=== PATIENT | female | born 1995 | race African-American/Black ===

== ENCOUNTER 2020-04-27 19:48 | Emergency (ER) | payer SELFPAY ==
[2020-04-27] MEDS ORDERED: ACETAMINOPHEN 325 MG TABLET PO ONE (20:34)
--- NOTE | 2020-04-27 20:35 | ER Document Report ---
ED Medical Screen (RME) - General Chief Complaint: Abdominal Pain Stated Complaint: ABDOMINAL AND BACK PAIN Time Seen by Provider: 04/27/20 20:32 Mode of Arrival: Ambulatory Information source: Patient Notes: HPI; 4-year-old female presents to the emergency room complaining of lower pelvic pain that radiates to her back for the past 10 days. Denies nausea, vomiting, no urinary symptoms. Has been taking Aleve with relief until the past 2 days it is no longer helping with her pain. Abnormal menstrual cycle last week she states she only bled for 2 days and then stopped and then spotted for 2 days. Sexually active not using anything for control. Has not done a home test. PE: Alert and oriented x3. Lungs: Clear to auscultation without rales, rhonchi, wheezes. Heart: Regular rate and rhythm without murmurs, rubs, gallops. I have greeted and performed a rapid initial assessment of this patient. A comprehensive ED assessment and evaluation of the patient, analysis of test results and completion of the medical decision making process will be conducted by additional ED providers. I have specifically instructed the patient or family members with the patient to immediately return to any nursing staff should anything change in the patient's condition or with their chief complaint. TRAVEL OUTSIDE OF THE [place] IN LAST 30 DAYS: No Physical Exam - Vital signs Vitals: Temp Pulse Resp BP Pulse Ox 98.1 F 93 16 134/106 H 100 04/27/20 20:06 04/27/20 20:06 04/27/20 20:06 04/27/20 20:06 04/27/20 20:06 Course - Vital Signs Vital signs: Temp Pulse Resp BP Pulse Ox 98.1 F 93 16 134/106 H 100 04/27/20 20:06 04/27/20 20:06 04/27/20 20:06 04/27/20 20:06 04/27/20 20:06
[2020-04-27 21:32] LABS: ABSOLUTE BASOPHILS # (AUTO) 0.1 10^3/uL (0.0-0.2); ABSOLUTE EOSINOPHILS # (AUTO) 0.1 10^3/uL (0.0-0.6); ABSOLUTE LYMPHOCYTES (AUTO) 2.6 10^3/uL (0.5-4.7); ABSOLUTE MONOCYTES (AUTO) 0.7 10^3/uL (0.1-1.4); ABSOLUTE NEUT (AUTO) 6.1 10^3/uL (1.7-8.2); BASOPHILS % (AUTO) 0.8 % (0-2); EOSINOPHILS % (AUTO) 1.4 % (0-6); HEMOGLOBIN 15.1 g/dL (12.0-15.5); LYMPHOCYTES % (AUTO) 26.9 % (13-45); MEAN CORPUSCULAR VOLUME 89 fl (80-97); MONOCYTES % (AUTO) 6.9 % (3-13); PLATELET COUNT 253 10^3/uL (150-450); RED BLOOD COUNT 4.87 10^6/uL (3.72-5.28); RED CELL DISTRIBUTION WIDTH 13.1 % (11.5-14.0); TOTAL CELLS COUNTED % (AUTO) 100 %; WHITE BLOOD COUNT 9.6 10^3/uL (4.0-10.5)
[2020-04-27 21:46] LABS: APPEARANCE,URINE CLEAR; BILIRUBIN,URINE NEGATIVE (NEGATIVE); COLOR,URINE YELLOW; GLUCOSE, URINE NEGATIVE (NEGATIVE); KETONES,URINE NEGATIVE (NEGATIVE); LEUKOCYTE ESTERASE,URINE NEGATIVE (NEGATIVE); NITRITE,URINE NEGATIVE (NEGATIVE); PROTEIN,URINE NEGATIVE (NEGATIVE); URINE SPECIFIC GRAVITY 1.008; UROBILINOGEN,URINE NEGATIVE mg/dL (<2.0)
[2020-04-27 21:57] LABS: ALBUMIN 4.3 g/dL (3.5-5.0); ALKALINE PHOSPHATASE 91 U/L (38-126); ANION GAP 10 (5-19); ASPARTATE AMINO TRANSFERASE 23 U/L (14-36); BILIRUBIN,DIRECT 0.3 mg/dL (0.0-0.4); BILIRUBIN,TOTAL 0.7 mg/dL (0.2-1.3); BLOOD UREA NITROGEN 9 mg/dL (7-20); CALCIUM 9.3 mg/dL (8.4-10.2); CARBON DIOXIDE 26 mmol/L (22-30); CHLORIDE 105 mmol/L (98-107); GLUCOSE 88 mg/dL (75-110); POTASSIUM 4.2 mmol/L (3.6-5.0)
--- NOTE | 2020-04-27 22:14 | ER Document Report ---
ED GI/ - General Chief Complaint: Abdominal Pain Stated Complaint: ABDOMINAL AND BACK PAIN Time Seen by Provider: 04/27/20 20:32 Mode of Arrival: Ambulatory Notes: HPI; 4-year-old female presents to the emergency room complaining of lower pelvic pain that radiates to her back for the past 10 days. Denies nausea, vomiting, no urinary symptoms. Has been taking Aleve with relief until the past 2 days it is no longer helping with her pain. Abnormal menstrual cycle last week she states she only bled for 2 days and then stopped and then spotted for 2 days. Sexually active not using anything for control. Has not done a home test. TRAVEL OUTSIDE OF THE [place] IN LAST 30 DAYS: No Past Medical History - General Information source: Patient Physical Exam - Vital signs Vitals: Temp Pulse Resp BP Pulse Ox 98.1 F 93 16 134/106 H 100 04/27/20 20:06 04/27/20 20:06 04/27/20 20:06 04/27/20 20:06 04/27/20 20:06 Course - Vital Signs Vital signs: Temp Pulse Resp BP Pulse Ox 98.1 F 93 16 134/106 H 100 04/27/20 20:06 04/27/20 20:06 04/27/20 20:06 04/27/20 20:06 04/27/20 20:06 - Laboratory Result Diagrams: 04/27/20 21:10 04/27/20 21:10
--- NOTE | 2020-04-27 22:44 | ER Document Report ---
ED General - General Chief Complaint: Abdominal Pain Stated Complaint: ABDOMINAL AND BACK PAIN Time Seen by Provider: 04/27/20 20:32 Primary Care Provider: [facility] [Provider Group] - Follow up as needed Mode of Arrival: Ambulatory TRAVEL OUTSIDE OF THE [place] IN LAST 30 DAYS: No - HPI Notes: Patient is a 24-year-old female who presents with lower abdominal pain for the past week. Patient states at onset she was able to take Tylenol and ibuprofen with improvement of her symptoms, but her pain worsened yesterday. She describes the pain as a constant, dull pain that radiates to her bilateral flanks. She reports a history of ovarian cyst and had similar symptoms a year ago when one ruptured. She states sitting exacerbates her symptoms. Her last menstrual period was 1 week ago, but states it started 2 days early and was very heavy on the first day. She denies nausea, vomiting, fever, chills, shortness of breath, chest pain, headache, dysuria, diarrhea, and constipation. She has a history of hypertension which she is not currently taking medications for as well as a history of breast reduction. She drinks alcohol occasionally but denies smoking and recreational drug use. G3, P2, A1 (elective). Patient is sexually active and reports one partner. She denies any vaginal discharge. - Related Data Allergies/Adverse Reactions: No Known Allergies Allergy (Unverified 04/27/20 23:43) Past Medical History - General Information source: Patient - Social History Smoking Status: Never Smoker Frequency of alcohol use: Occasional Drug Abuse: None Family History: Reviewed & Not Pertinent Review of Systems - Review of Systems Constitutional: No symptoms reported EENT: No symptoms reported Cardiovascular: No symptoms reported Respiratory: No symptoms reported Gastrointestinal: See HPI Genitourinary: No symptoms reported Female Genitourinary: No symptoms reported Musculoskeletal: See HPI Skin: No symptoms reported Hematologic/Lymphatic: No symptoms reported Neurological/Psychological: No symptoms reported Physical Exam - Vital signs Vitals: Temp Pulse Resp BP Pulse Ox 98.1 F 93 16 134/106 H 100 04/27/20 20:06 04/27/20 20:06 04/27/20 20:06 04/27/20 20:06 04/27/20 20:06 - Notes Notes: PHYSICAL EXAMINATION: VITALS: Vitals reviewed and within normal limits. GENERAL: Well-appearing, well-nourished and in no acute distress. HEAD: Atraumatic, normocephalic. EYES: Pupils equal round and reactive to light, extraocular movements intact, sc brook anicteric, conjunctiva are normal. ENT: nares patent, oropharynx clear without exudates. Moist mucous membranes. NECK: Normal range of motion, supple without lymphadenopathy. LUNGS: Breath sounds clear to auscultation bilaterally and equal. No wheezes rales or rhonchi. HEART: Regular rate and rhythm without murmurs. ABDOMEN: Soft, nontender, normoactive bowel sounds. No guarding, no rebound. No masses appreciated. EXTREMITIES: Normal range of motion, no pitting or edema. No cyanosis. NEUROLOGICAL: No focal neurological deficits. Moves all extremities spontaneously and on command. PSYCH: Normal mood, normal affect. SKIN: Warm, Dry, normal turgor, no rashes or lesions noted. Course - Re-evaluation Re-evalutation: Patient is a 24-year-old female who presents with lower abdominal pain for the past week. Vital signs are within normal limits. Physical exam unremarkable. WBC normal at 9.6. Electrolytes normal and other labs otherwise unremarkable. UA negative. Transvaginal ultrasound shows normal-appearing ovaries with good venous and arterial blood flow. Based on workup, I am not concerned for ovarian torsion or infection. I discussed the results with the patient. Patient will be discharged home. I recommended ibuprofen and heating pad for symptomatic relief. Return precautions given and patient instructed to follow up with her PCP. - Vital Signs Vital signs: Temp Pulse Resp BP Pulse Ox 98.1 F 69 16 128/83 H 98 04/27/20 20:06 04/28/20 00:45 04/28/20 00:45 04/28/20 00:45 04/28/20 00:45 - Laboratory Result Diagrams: 04/27/20 21:10 04/27/20 21:10 Discharge - Discharge Clinical Impression: Abdominal pain Qualifiers: Abdominal location: lower abdomen, unspecified Qualified Code(s): R10.30 - Lower abdominal pain, unspecified Condition: Stable Disposition: HOME, SELF-CARE Additional Instructions: Take Ibuprofen/Tylenol and use as heating as needed for pain. Return if symptoms worsen or if you begin to have persistent vomiting, or fever. Abdominal Pain There are many causes of abdominal pain. Pain can mean a serious problem requiring surgery (such as appendicitis). It can also be an innocent problem that goes away on its own (such as a viral infection). Often, time must pass to determine the cause of pain. The physician does not feel that hospitalization is necessary, at present. Things may change within the next 24 hours. Call the doctor or come back for re- examination if any problems occur, such as: (1) Pain that becomes more severe, steady, or becomes concentrated in one specific area. Also, pain that is more severe with movement or coughing. (2) Vomiting that persists or becomes more frequent. (3) Blood in the vomitus, urine, or bowel movements. Blood in the stool may have a tarry or black appearance. (4) Shaking chills or fever greater than 100 degrees F. (5) The abdomen becomes more distended or swollen. (6) Bowel movements cease. (7) Failure to improve as expected. Referrals: [facility] [Provider Group] - Follow up as needed
[2020-04-27] MEDS ORDERED: OXYCODONE-ACETAMINOPHEN 5-325 MG TABLET PO ONE (22:46)
[2020-04-27] MEDS ORDERED: ONDANSETRON 4 MG TAB.RAPDIS PO ONE (22:46)
--- NOTE | 2020-04-28 00:18 | RADIOLOGY REPORT (SQ) ---
EXAM DESCRIPTION: US PELVIS TRANSVAGINAL COMPLETED DATE/TME: 04/27/2020 22:28 CLINICAL HISTORY: 24 years, Female, pelvic pain COMPARISON: None. TECHNIQUE: Emergent pelvic ultrasound LIMITATIONS: None. FINDINGS: The uterus measures 9.0 x 4.2 x 5.9 cm. The endometrium measures 4.7 mm in thickness. The myometrium is homogenous. The right ovary measures 4 x 2 x 2 cm, the left 3 x 2 x 2 cm. Arterial and venous flow to each ovary. Bilateral ovarian follicles. No solid adnexal mass. No free fluid IMPRESSION: Unremarkable exam copyright 2010 [employer]- All Rights Reserved
[2020-04-28 00:42] VITALS: BP 128/83
== END 2020-04-28 00:45 | disposition home or self-care (01) ==
LOC: EDBD → ER 19:48
DX: R10.30 Lower abdominal pain, unspecified (principal); R10.2 Pelvic and perineal pain; M54.9 Dorsalgia, unspecified
CPT/HCPCS: 99284; 36415; 84703; 85025; 80053; 81001; 76830; 93976; S0119

== ENCOUNTER 2020-05-24 08:18 | Emergency (ER) | payer SELFPAY ==
[2020-05-24 09:39] LABS: APPEARANCE,URINE SLIGHTLY-CLOUDY; BILIRUBIN,URINE NEGATIVE (NEGATIVE); COLOR,URINE YELLOW; GLUCOSE, URINE NEGATIVE (NEGATIVE); KETONES,URINE NEGATIVE (NEGATIVE); LEUKOCYTE ESTERASE,URINE SMALL (NEGATIVE); NITRITE,URINE NEGATIVE (NEGATIVE); PROTEIN,URINE NEGATIVE (NEGATIVE); URINE SPECIFIC GRAVITY 1.024; UROBILINOGEN,URINE NEGATIVE mg/dL (<2.0)
[2020-05-24 10:43] LABS: ABSOLUTE EOSINOPHILS # (AUTO) 0.1 10^3/uL (0.0-0.6); ABSOLUTE LYMPHOCYTES (AUTO) 1.7 10^3/uL (0.5-4.7); ABSOLUTE MONOCYTES (AUTO) 0.5 10^3/uL (0.1-1.4); BASOPHILS % (AUTO) 0.6 % (0-2); EOSINOPHILS % (AUTO) 1.7 % (0-6); HEMATOCRIT 39.7 % (36.0-47.0); LYMPHOCYTES % (AUTO) 27.6 % (13-45); MEAN CORPUSCULAR HEMOGLOBIN 30.8 pg (27.0-33.4); MEAN CORPUSCULAR HGB CONC 35.3 g/dL (32.0-36.0); MEAN CORPUSCULAR VOLUME 87 fl (80-97); MONOCYTES % (AUTO) 7.4 % (3-13); PLATELET COUNT 197 10^3/uL (150-450); RED BLOOD COUNT 4.55 10^6/uL (3.72-5.28); RED CELL DISTRIBUTION WIDTH 13.1 % (11.5-14.0); SEGMENTED NEUTROPHILS % (AUTO) 62.7 % (42-78); TOTAL CELLS COUNTED % (AUTO) 100 %; WHITE BLOOD COUNT 6.3 10^3/uL (4.0-10.5)
[2020-05-24 11:12] LABS: ALBUMIN 3.7 g/dL (3.5-5.0); ALKALINE PHOSPHATASE 75 U/L (38-126); ANION GAP 8 (5-19); ASPARTATE AMINO TRANSFERASE 19 U/L (14-36); BILIRUBIN,DIRECT 0.2 mg/dL (0.0-0.4); BILIRUBIN,TOTAL 0.6 mg/dL (0.2-1.3); BLOOD UREA NITROGEN 10 mg/dL (7-20); CARBON DIOXIDE 26 mmol/L (22-30); CHLORIDE 107 mmol/L (98-107); GLUCOSE 89 mg/dL (75-110); POTASSIUM 3.9 mmol/L (3.6-5.0); TOTAL PROTEIN 7.1 g/dL (6.3-8.2)
[2020-05-24] MEDS ORDERED: KETOROLAC TROMETHAMINE INJ/PF 30 MG/1 ML SDV IV ONE (11:20)
[2020-05-24] MEDS ORDERED: CEFTRIAXONE 1 GM/D5W RTU 1 GM/50 ML RTUPB IV ONE (11:20)
--- NOTE | 2020-05-24 11:27 | ER Document Report ---
ED General - General Chief Complaint: Abdominal Pain Stated Complaint: ABDOMINAL/PELVIS PAIN,HEADACHE Time Seen by Provider: 05/24/20 10:59 Primary Care [facility] [Provider Group] - Follow up in 1 week TRAVEL OUTSIDE OF THE [place] IN LAST 30 DAYS: No - HPI Notes: 24-year-old female G2, P2 here to the emergency department with complaints of lower abdominal pain and cramping began yesterday with associated urinary frequency. She states that she had her last menstrual period on April 21 and she has only been having some mild vaginal spotting in the past couple of days. She states that she had a negative test at home but she still concerned that she could potentially be . She admits that every time she uses the restroom she feels this pulling sensation in her bladder. She denies any fevers or chills. She denies any flank pain. She does admit to some low back pain. She denies any concern for STD but she would still like to be tested. - Related Data Allergies/Adverse Reactions: No Known Allergies Allergy (Unverified 04/27/20 23:43) Past Medical History - General Information source: Patient - Social History Smoking Status: Never Smoker Frequency of alcohol use: Social Drug Abuse: None Family History: Reviewed & Not Pertinent Patient has homicidal ideation: No Review of Systems - Review of Systems Constitutional: denies: Chills, Fever EENT: No symptoms reported Cardiovascular: denies: Chest pain, Palpitations, Dizziness, Lightheaded Respiratory: denies: Cough, Short of breath Gastrointestinal: Abdominal pain. denies: Diarrhea, Nausea, Vomiting Genitourinary: See HPI, Frequency Female Genitourinary: Vaginal bleeding Musculoskeletal: See HPI, Back pain Skin: No symptoms reported Hematologic/Lymphatic: No symptoms reported Neurological/Psychological: No symptoms reported -: Yes All other systems reviewed and negative Physical Exam - Vital signs Vitals: Temp Pulse Resp BP Pulse Ox 98.7 F 87 14 137/80 H 99 05/24/20 08:23 05/24/20 08:23 05/24/20 08:23 05/24/20 08:23 05/24/20 08:23 Interpretation: Normal - General General appearance: Appears well, Alert In distress: None - HEENT Head: Normocephalic, Atraumatic Eyes: Normal Pupils: PERRL - Respiratory Respiratory status: No respiratory distress Chest status: Nontender Breath sounds: Normal. No: Wheezing Chest palpation: Normal - Cardiovascular Rhythm: Regular Heart sounds: Normal auscultation Murmur: No - Abdominal Inspection: Normal Distension: No distension Bowel sounds: Normal Tenderness: Nontender. No: Tender, McBurney's point, Delong's sign, Guarding, R ebound Organomegaly: No organomegaly - Genitourinary Notes: Patient declines pelvic exam. 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 Patient declines pelvic exam. She would like to self swab. She would like to be discharged after she gets Rocephin and Toradol and called with results of GC/chlamydia and wet mount. Will discharge home and have her follow with PCP. - Vital Signs Vital signs: Temp Pulse Resp BP Pulse Ox 98.8 F 77 14 126/81 H 97 05/24/20 12:17 05/24/20 12:17 05/24/20 12:17 05/24/20 12:17 05/24/20 12:17 - Laboratory Result Diagrams: 05/24/20 10:25 05/24/20 10:25 Laboratory results interpreted by me: 05/24/20 09:13 Ur Leukocyte Esterase SMALL H Urine Ascorbic Acid 20 H Discharge - Discharge Clinical Impression: Negative test, Pelvic pain UTI (urinary tract infection) Qualifiers: Urinary tract infection type: acute cystitis Hematuria presence: without he maturia Qualified Code(s): N30.00 - Acute cystitis without hematuria Condition: Stable Disposition: HOME, SELF-CARE Instructions: Urinary Tract Infection ([facility]) Additional Instructions: Complete all antibiotics. Push fluids. Follow-up with primary care. Return if any worsening symptoms or concerns. You are found to have a urinary tract infection today. Your test was negative. We will call with any abnormal results for gonorrhea and chlamydia, wet mount results. Prescriptions: Cephalexin Monohydrate [Keflex 500 mg Capsule] 500 mg PO BID #20 capsule Phenazopyridine HCl [Pyridium 100 Mg Tablet] 200 mg PO TID PRN #6 tablet PRN Reason: Referrals: [facility] [Provider Group] - Follow up in 1 week
[2020-05-24 12:07] LABS: BACTERIA (WET MOUNT) 4+ BACTERIA SEEN; EPITHELIALS (WET MOUNT) 4+ EPITHELIALS SEEN; T.VAGINALIS (WET MOUNT) NO TRICHOMONAS SEEN; WBCS (WET MOUNT) 2+ WBCS SEEN; YEAST (WET MOUNT) NO YEAST SEEN
[2020-05-24 12:18] VITALS: BP 126/81
[2020-05-24 13:33] LABS: CHLAM PCR NOT DETECTED (NOT DETECT)
== END 2020-05-24 12:17 | disposition home or self-care (01) ==
LOC: ER 08:18
DX: N30.00 Acute cystitis without hematuria (principal); Z32.02 Encounter for pregnancy test, result negative; R10.2 Pelvic and perineal pain; M54.5 Low back pain
CPT/HCPCS: 99284; 96375; 96365; 36415; 87210; 83690; 85025; 81025; 80053; 81001; 87491; 87591; J1885; J0696